=== PATIENT | male | born 1980 | race Two or more races ===

== ENCOUNTER 2016-07-23 12:22 | Emergency (ER) | payer OTHER ==
[2016-07-23 12:43] VITALS: TEMP 98.1; BMI 40.6
--- NOTE | 2016-07-23 13:09 | PDOC ---
History of Present Illness - General History Source: Patient Exam Limitations: No Limitations - History of Present Illness Initial Comments: CHIEF COMPLAINT: 35 y/o afebrile male with no significant PMH c/o headache x 1 week. HISTORY OF PRESENT ILLNESS: The patient states about 1 week ago he began having a constant headache. He states 5 days ago his job checked his BP and he says it was "high". He states he also gets lightheaded when his headaches are bad. He denies LOC, fall, head trauma, neck pain, changes in vision/hearing, n/ v/d, CP, SOB, abd pain, back pain, numbness/tingling in extremities, trouble walking, slurred speech, facial drooping. The patient is a non smoker. His mother, who is at bedside, informs me that her entire family has a history of early onset hypertension. Her mother (patient's grandmother) had her first stroke in her 60s. Vital signs on arrival are notable for BP of 171/115. REVIEW OF SYSTEMS: GENERAL/CONSTITUTIONAL: No fever/chills. No weakness. No weight change. HEAD, EYES, EARS, NOSE AND THROAT: No change in vision. No ear pain or discharge. No sore throat. CARDIOVASCULAR: No chest pain or shortness of breath. RESPIRATORY: No cough, wheezing, or hemoptysis. GASTROINTESTINAL: No abd pain, nausea, vomiting, diarrhea. GENITOURINARY: No dysuria, frequency, or change in urination. MUSCULOSKELETAL: No joint or muscle swelling or pain. No neck or back pain. SKIN: No rash or easy bruising. NEUROLOGIC: +headache and lightheaded. No loss of consciousness or loss of sensation. PHYSICAL EXAM: GENERAL: The patient is awake, alert, and fully oriented, in no acute distress. He is a well appearing, tall, overweight male. HEAD: Normal with no signs of trauma. ENT: Pupils equal, round and reactive to light, extraocular movements intact, sclera anicteric, conjunctiva clear. No nystagmus. LUNGS: Clear to auscultation bilaterally. Normal excursion. No respiratory distress or use of accessory muscles. CV: RRR, S1/S2, no MRG. Cap refill < 2 sec. ABDOMEN: Soft, non-distended, non-tender even to deep palpation, no hepatomegaly or splenomegaly, no masses. EXTREMITIES: Normal range of motion, no edema. NEUROLOGICAL: Normal speech. No slurred speech. No facial drooping. CN II- XII grossly intact. Rapid alternating movements intact. Finger to nose intact. PSYCH: Normal mood, normal affect. SKIN: Warm, dry, normal turgor, no rashes or lesions noted. <Emily Camarena - Last Filed: 07/23/16 15:35> <Biju Sahu - Last Filed: 07/24/16 12:40> - General Chief Complaint: Headache Stated Complaint: DIZZINES HEADACHE Time Seen by Provider: 07/23/16 12:35 Past History - Past Medical History HTN: Yes Other medical history: denies - Surgical History Orthopedic Surgery: Yes (acl repair 1997; arthroscopy 2007) - Psycho/Social/Smoking Cessation Hx Anxiety: No Suicidal Ideation: No Smoking Status: No Smoking History: Never smoked Number of Cigarettes Smoked Daily: 0 Information on smoking cessation initiated: No Hx Alcohol Use: No Drug/Substance Use Hx: No Substance Use Type: Alcohol <Emily Camarena - Last Filed: 07/23/16 15:35> <Biju Sahu - Last Filed: 07/24/16 12:40> - Past Medical History Allergies/Adverse Reactions: Allergies Allergy/AdvReac Type Severity Reaction Status Date / Time No Known Allergies Allergy Verified 07/23/16 12:43 Home Medications: Ambulatory Orders NK [No Known Home Medication] 11/25/14 *Physical Exam - Vital Signs Last Vital Signs Temp Pulse Resp BP Pulse Ox 98.1 F 59 L 17 171/115 96 07/23/16 12:38 07/23/16 12:38 07/23/16 12:38 07/23/16 12:38 07/23/16 12:38 <Emily Camarena - Last Filed: 07/23/16 15:35> - Vital Signs Last Vital Signs Temp Pulse Resp BP Pulse Ox 98.1 F 74 20 144/94 97 07/23/16 12:38 07/23/16 16:07 07/23/16 16:07 07/23/16 16:07 07/23/16 16:07 <Biju Sahu - Last Filed: 07/24/16 12:40> Heart Score/ECG Review - ECG Intrepretation Comment:: Twelve-lead EKG was performed and reviewed by Dr. Sahu. There is sinus bradycardia with a rate of 54bpm. The axis is normal. The intervals are normal. Flipped T waves in leads III and aVR. Impression: Abnormal twelve-lead EKG <Emily Camarena - Last Filed: 07/23/16 15:35> ED Treatment Course - LABORATORY CBC & Chemistry Diagram: 07/23/16 13:05 07/23/16 13:12 - RADIOLOGY Radiology Studies Ordered: Category Date Time Status HEAD CT WITHOUT CONTRAST [CT] Stat CT Scan 07/23/16 12:56 Ordered <Emily Camarena - Last Filed: 07/23/16 15:35> - LABORATORY CBC & Chemistry Diagram: 07/23/16 13:05 07/23/16 13:12 - ADDITIONAL ORDERS Additional order review: 07/23/16 13:05 RBC 4.69 MCV 91.0 MCHC 33.2 RDW 14.0 MPV 9.3 D Neutrophils % 68.9 Lymphocytes % 24.2 Monocytes % 5.4 Eosinophils % 1.2 Basophils % 0.3 - Medications Given in the ED: ED Medications Discontinued Medications Generic Name Dose Route Start Last Admin Trade Name Freq PRN Reason Stop Dose Admin Dexamethasone Sodium Phosphate 10 mg 07/23/16 14:31 07/23/16 14:43 Decadron Injection - IVPUSH 07/23/16 14:32 10 mg ONCE ONE Administration Ketorolac Tromethamine 30 mg 07/23/16 14:31 07/23/16 14:43 Toradol Injection - IVPUSH 07/23/16 14:32 30 mg ONCE ONE Administration Metoclopramide HCl 10 mg 07/23/16 13:10 07/23/16 13:49 Reglan Injection - IVPB 07/23/16 13:11 10 mg ONCE ONE Administration <Biju Sahu - Last Filed: 07/24/16 12:40> Medical Decision Making - Medical Decision Making A/P: 35 y/o male with 1 week of headache and high blood pressure. The patient was seen at Urgent care today, given 364mg of Aspirin and sent here. Plan is as follows: 1. Labs 2. EKG 3. Head CT Labs unremarkable EKG ok Head CT IMPRESSION: Unremarkable exam Repeat BP is 139/97. The patient admits his headache is still a 10/10 Ordered IV toradol and decadron About 45 minutes after meds, the patient states his headache has completely resolved. He wants to go home. Gave him all results. Suggested he take 800mg of advil at home for his headache (he is currently taking 400mg). Will discharge to home with instructions to f/u with his PCP for blood pressure checks. The patient was instructed to drink plenty of fluids and return to the ER immediately with any worsening or concerning symptoms. The patient verbalizes understanding of all instructions, has no further questions and is awaiting discharge. <Emily Camarena - Last Filed: 07/23/16 15:35> - Medical Decision Making 07/24/16 12:39 The patient was seen and evaluated in conjunction with YVETTE Camarena under my direct supervision, ancillary studies were reviewed. I agree with the plan as outlined by YVETTE Camarena . <Biju Sahu - Last Filed: 07/24/16 12:40> *DC/Admit/Observation/Transfer <Emily Camarena - Last Filed: 07/23/16 15:35> <Biju Sahu - Last Filed: 07/24/16 12:40> Diagnosis at time of Disposition: Headache Qualifiers: Headache type: unspecified Headache chronicity pattern: acute headache Intractability: not intractable Qualified Code(s): R51 - Headache - Discharge Dispostion Disposition: HOME Condition at time of disposition: Improved - Referrals Referrals: Dharmesh Weber MD [Primary Care Provider] - Call tomorrow - Patient Instructions Printed Discharge Instructions: DI for Headache Additional Instructions: Discharge Instructions: -You labs were normal and the Cat Scan of your head was negative -Take 800mg of Advil every 8 hours with food for headache -Drink at least 64oz of water daily -Call Dr. Weber tomorrow to schedule follow up appointment for repeat blood pressure checks -Return to the ER immediately with any worsening or concerning symptoms.
[2016-07-23] MEDS ORDERED: METOCLOPRAMIDE HCL INJECTION 10 MG/2 ML VIAL IVPB ONE (13:10)
[2016-07-23] MEDS ORDERED: METOCLOPRAMIDE HCL INJECTION 10 MG/2 ML VIAL ONE (13:14)
[2016-07-23 13:17] LABS: BASOPHIL 0.3 % (0-2.0); EOSINOPHIL 1.2 % (0-4.5); MCH 30.2 pg (25.7-33.7); MCHC 33.2 g/dl (32.0-35.9); MEAN PLT VOLUME 9.3 fl (7.5-11.1); NEUTROPHILS 68.9 % (42.8-82.8); PLATELET COUNT 215 K/MM3 (134-434)
[2016-07-23 13:31] LABS: INR 1.12 (0.82-1.09); PROTHROMBIN TIME (PATIENT) 12.4 SEC (9.98-11.88)
[2016-07-23 13:42] LABS: ALBUMIN 3.8 g/dl (3.4-5.0); ANION GAP 7 (8-16); BILIRUBIN,TOTAL 0.5 mg/dL (0.2-1.0); CALCIUM 8.8 mg/dL (8.5-10.1); CO2 31 mmol/L (21-32); COCKROFT - GAULT 351.48; CREATININE 0.6 mg/dL (0.7-1.3); GLUCOSE,RANDOM 79 mg/dL (74-106); SGOT/AST 16 U/L (15-37); SGPT/ALT 38 U/L (12-78); TOT PROT 7.8 g/dl (6.4-8.2)
[2016-07-23 13:44] LABS: ALK PHOS 46 U/L (45-117); TROPONIN I < 0.02 ng/ml (0.00-0.05)
[2016-07-23] MEDS ORDERED: KETOROLAC TROMETHAMINE 30 MG/1 ML VIAL IVPUSH ONE (14:31)
[2016-07-23] MEDS ORDERED: DEXAMETHASONE SOD PHOSPHATE 10 MG/1 ML VIAL IVPUSH ONE (14:31)
[2016-07-23] MEDS ORDERED: DEXAMETHASONE SOD PHOSPHATE 10 MG/1 ML VIAL ONE (14:33)
[2016-07-23] MEDS ORDERED: KETOROLAC TROMETHAMINE 30 MG/1 ML VIAL ONE (14:33)
[2016-07-23 16:07] VITALS: BP 144/94; PULSE 74
--- NOTE | 2016-07-24 11:09 | EKG ---
Test Reason : Blood Pressure : / mmHG Vent. Rate : 054 BPM Atrial Rate : 054 BPM P-R Int : 218 ms QRS Dur : 116 ms QT Int : 450 ms P-R-T Axes : 018 -12 -01 degrees QTc Int : 426 ms SINUS BRADYCARDIA WITH SINUS ARRHYTHMIA WITH 1ST DEGREE A-V BLOCK CANNOT RULE OUT ANTERIOR INFARCT , AGE UNDETERMINED ABNORMAL ECG WHEN COMPARED WITH ECG OF 24-JUN-2012 09:18, MINIMAL CRITERIA FOR ANTERIOR INFARCT ARE NOW PRESENT Confirmed by ARGENTINA GOYAL MD ([id number]) on 07/24/2016 11:08:43 AM Referred By: Confirmed By:ARGENTINA GOYAL MD
== END 2016-07-23 16:07 | disposition home or self-care (01) ==
LOC: JER 12:22
PROC: 3E0333Z Introduction of Anti-inflammatory into Peripheral Vein, Percutaneous Approach (ICD-10-PCS; principal; 2016-07-23)
PROC: 3E033GC Introduction of Other Therapeutic Substance into Peripheral Vein, Percutaneous Approach (ICD-10-PCS; 2016-07-23)
DX: I10 Essential (primary) hypertension (principal); R51 Headache
CPT/HCPCS: 36415; 70450-TC; 80053; 82550; 82553; 84484; 85025; 85610; 93005; 93010; 99284-25

== ENCOUNTER 2018-05-25 19:17 | Emergency (ER) | payer BC, OTHER ==
[2018-05-25 19:21] VITALS: PULSE 77; TEMP 98.5; BMI 40.6
--- NOTE | 2018-05-25 20:43 | PDOC ---
History of Present Illness - General Chief Complaint: Respiratory Stated Complaint: FEVER,BODY PAIN Time Seen by Provider: 05/25/18 19:45 History Source: Patient Exam Limitations: No Limitations - History of Present Illness Initial Comments: 05/25/18 20:38 HISTORY OF PRESENT ILLNESS: 37-year-old male presents to the emergency department for evaluation of dry cough, frontal headache, sore throat, fevers and body aches for the past 5 days. Patient reports a delaying being seen as a result of having to work and not wanting to call out. Patient reports he does not have a primary doctor as his PMD has retired since his last visit. 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 No recent travel. PAST MEDICAL HISTORY: Denies past medical history SURGICAL HISTORY: Denies ALLERGIES: No known drug allergies REVIEW OF SYSTEMS General/Constitutional: +fever. Denies weakness, weight change. HEENT: Denies change in vision. Denies ear pain or discharge. +sore throat. Cardiovascular: Denies chest pain or shortness of breath. Respiratory: Moist productive cough. Denies wheezing, or hemoptysis. Gastrointestinal: Denies nausea, vomiting, diarrhea or constipation. Denies rectal bleeding. Genitourinary: Denies dysuria, frequency, or change in urination. Musculoskeletal: +myalgias. Denies neck or back pain. Skin and breasts: Denies rash or easy bruising. Neurologic: Denies headache, vertigo, loss of consciousness, or loss of sensation. Psychiatric: Denies depression or anxiety. Endocrine: Denies increased thirst. Denies abnormal weight change. Hematologic/Lymphatic: Denies anemia, easy bleeding, or history of blood clots. Allergic/Immunologic: Denies hives or skin allergy. Denies latex allergy. PHYSICAL EXAM General Appearance: Well-appearing, appropriately dressed. No apparent distress , no intoxication. HEENT: EOMI, PERRLA, normal voice, TMs retracted bilaterally. No conjunctival pallor. No photophobia, scleral icterus. Oropharynx erythematous without lesions or exudate. Cobblestoning noted in the posterior. No nasal discharge present. Neck: Supple. Trachea midline. No tenderness, rigidity, carotid bruit, stridor , or thyromegaly. Nontender anterior cervical lymphadenopathy present. Respiratory/Chest: Lungs CTAB. No shortness of breath, chest tenderness, respiratory distress, accessory muscle use. No crackles, rales, rhonchi, stridor , wheezing, dullness Cardiovascular: RRR. S1, S2. No JVD, murmur, bradycardia, tachycardia. Vascular Pulses: Dorsalis-Pedis (R): 2+, Dorsalis-Pedis (L): 2+ Gastrointestinal/Abdominal: Normal bowel sounds. Abdomen soft, non-distended. No tenderness or rebound tenderness. No organomegaly, pulsatile mass, guarding, hernia, hepatomegaly, splenomegaly. Musculoskeletal/Extremities: Normal inspection. FROM of all extremities, normal capillary refill. Pelvis Stable. No CVA tenderness. No tenderness to extremities, pedal edema, swelling, erythema or deformity. Integumentary: Appropriate color, dry, warm. No cyanosis, erythema, jaundice or rash Neurologic: staff rn II-XII intact. Fully oriented, alert. Appropriate mood/affect. Motor strength 5/5. No appreciable EOM palsy, facial droop or sensory deficit. Past History - Past Medical History Allergies/Adverse Reactions: Allergies Allergy/AdvReac Type Severity Reaction Status Date / Time No Known Allergies Allergy Verified 05/25/18 19:21 Home Medications: Ambulatory Orders Amlodipine Besylate [Norvasc -] 5 mg PO DAILY #30 tablet 05/25/18 COPD: No HTN: Yes - Surgical History Orthopedic Surgery: Yes (acl repair 1997; arthroscopy 2007) - Suicide/Smoking/Psychosocial Hx Smoking Status: No Smoking History: Never smoked Number of Cigarettes Smoked Daily: 0 Hx Alcohol Use: No Drug/Substance Use Hx: No Substance Use Type: Alcohol *Physical Exam - Vital Signs Last Vital Signs Temp Pulse Resp BP Pulse Ox 98.5 F 77 18 175/104 H 97 05/25/18 19:19 05/25/18 19:19 05/25/18 19:19 05/25/18 19:19 05/25/18 19:19 Moderate Sedation - Procedure Monitoring Vital Signs: Procedure Monitoring Vital Signs Temperature 98.5 F 05/25/18 19:19 Pulse Rate 77 05/25/18 19:19 Respiratory Rate 18 05/25/18 19:19 Blood Pressure 175/104 H 05/25/18 19:19 O2 Sat by Pulse Oximetry (%) 97 05/25/18 19:19 Medical Decision Making - Medical Decision Making 05/25/18 20:38 A/P: 37-year-old male with 7 days of influenza-like illness This patient is outside the window I will defer testing at this time. Patient noted to be hypertensive with a blood pressure of 178/109. Patient is a larger than average gentleman and a small blood pressure cuff was used. Recheck blood pressure 05/25/18 21:00 Blood pressure remains elevated. EKG Norvasc 5 mg orally now Reassess 05/25/18 22:12 Patient's blood pressure is improved. EKG is interpreted by Dr. Lowe and reviewed by me: Sinus rhythm with rate of 66. Normal intervals noted. Inverted T waves present in lead 1 and aVL. I will discharge home with a prescription for Norvasc 5 mg orally to be taken daily for patient to follow-up with [facility]. Patient verbalizes understanding of discharge instructions. *DC/Admit/Observation/Transfer Diagnosis at time of Disposition: Essential hypertension URI (upper respiratory infection) Qualifiers: URI type: unspecified URI Qualified Code(s): J06.9 - Acute upper respiratory infection, unspecified - Discharge Dispostion Disposition: HOME Condition at time of disposition: Stable Decision to Admit order: No - Prescriptions Prescriptions: Amlodipine Besylate [Norvasc -] 5 mg PO DAILY #30 tablet - Referrals Referrals: Carmella Goldman MD [Provisional Medical Staff] - - Patient Instructions Additional Instructions: Rest, drink lots of fluids: Teas, water, soups, Pedialyte Saltwater gargles Steamy showers/seem to face break up mucus Avoid contact with others until fevers and cough resolved Lots of handwashing and good hygiene Continue [id number] medications for symptomatic relief Tylenol or Motrin for fever and pain You've been given referral for a family doctor. Make an appointment to be evaluated within the next 7 days. Take Norvasc 5 mg every day starting tomorrowuntil your medications have been changed by a physician. Followup with private physician in one to 2 days as needed Return to emergency department for worsened symptoms, fevers, dehydration - Post Discharge Activity Forms/Work/School Notes: Back to Work
[2018-05-25] MEDS ORDERED: amLODIPine BESYLATE 5 MG TABLET (FP) PO ONE (21:04)
[2018-05-25] MEDS ORDERED: amLODIPine BESYLATE 5 MG TABLET (FP) ONE (21:06)
[2018-05-25 22:13] VITALS: BP 155/102
--- NOTE | 2018-05-26 22:10 | EKG ---
Test Reason : Blood Pressure : / mmHG Vent. Rate : 066 BPM Atrial Rate : 066 BPM P-R Int : 194 ms QRS Dur : 112 ms QT Int : 424 ms P-R-T Axes : 000 183 174 degrees QTc Int : 444 ms NORMAL SINUS RHYTHM CANNOT RULE OUT ANTEROSEPTAL INFARCT (CITED ON OR BEFORE 23-JUL-2016) ABNORMAL ECG WHEN COMPARED WITH ECG OF 23-JUL-2016 13:20, INCORRECT LEAD PLACEMENT Confirmed by NEIL GOODEN, JULES ([id number]) on 05/26/2018 10:10:46 PM Referred By: MR Confirmed By:JULES TREJO MD
== END 2018-05-25 22:14 | disposition home or self-care (01) ==
LOC: JERFT 19:17
DX: J06.9 Acute upper respiratory infection, unspecified (principal); I10 Essential (primary) hypertension
CPT/HCPCS: 93005; 93010; 99281-25

== ENCOUNTER 2024-12-05 08:58 | Emergency (ER) | payer BC ==
[2024-12-05 09:43] VITALS: BP 142/81; PULSE 65; RESP 17; TEMP 98.1; BMI 36.0
[2024-12-05 10:08] LABS: ABSOLUTE IMMATURE GRANULOCYTES 0.03 x10^3/uL (0.0-0.031); BASOPHILS # 0.01 x10^3/uL (0.01-0.08); EOSINOPHIL % 0.4 % (0.8-7.0); EOSINOPHILS # 0.04 x10^3/uL (0.04-0.54); MCHC 32.9 g/dl (32.3-36.5); MEAN CELL VOLUME 90.5 fl (79.0-92.2); MEAN PLT VOLUME 11.2 fl (9.4-12.4); MONOCYTE # 0.48 x10^3/uL (0.30-0.82); MONOCYTE % 5.3 % (5.3-12.2); RDW 13.2 % (12.1-15.9)
[2024-12-05 10:28] LABS: GLUCOSE,RANDOM 84.0 mg/dL (74-106); TOT PROT 7.7 g/dl (6.4-8.2)
[2024-12-05 10:29] LABS: CO2 20.0 mmol/L (21-32)
[2024-12-05 10:30] LABS: ALK PHOS 45.0 U/L (40-150)
[2024-12-05 10:33] LABS: CREATININE 0.77 mg/dL (0.55-1.3); SGOT/AST 22.0 U/L (5-34); SGPT/ALT 30.0 U/L (0-55)
[2024-12-05] MEDS ORDERED: HIV POST EXPOSURE PROPHYLAXIS KIT PO ONE (10:33)
[2024-12-05] MEDS: HIV POST EXPOSURE PROPHYLAXIS KIT PO ONE (10:34)
[2024-12-05 10:54] LABS: HCV DIAGNOSTIC IN-HOUSE W/RFLX NON-REACTIVE (NONREACTIVE); HEPATITIS B SURF AG NON-MATERN NON-REACTIVE (NONREACTIVE); HIV INTERPRETATION NEGATIVE (NEGATIVE)
== END 2024-12-05 10:57 | disposition home or self-care (01) ==
LOC: JER 08:58 → JERFT 08:58
DX: S61.230A Puncture wound without foreign body of right index finger without damage to nail, initial encounter (principal); Z77.21 Contact with and (suspected) exposure to potentially hazardous body fluids; W46.0XXA Contact with hypodermic needle, initial encounter; Y99.0 Civilian activity done for income or pay
CPT/HCPCS: 36415; 80053; 85025; 86704; 86803; 87340; 87389; 87517; 99283-25